=== PATIENT | female | born 1955 | race Caucasian/White ===

== ENCOUNTER 2022-06-10 07:35 | Day surgery (SDC) | payer MEDICARE ==
[2022-06-10] MEDS ORDERED: Depo-Medrol 40 MG/ML IM ONE (07:36)
[2022-06-10] MEDS ORDERED: Sodium Chloride 0.9(Preservative Free) 10 ML IJ ONE (07:36)
[2022-06-10] MEDS ORDERED: DIPRIVAN 200 MG/20 ML IV ONE (08:55)
--- NOTE | 2022-06-10 09:53 | XRAY ---
Indication: Right L3-L5 transforaminal CONNIE. Intraoperative fluoroscopy provided for 25 seconds. 6 digital spot image submitted for interpretation demonstrates posterior needle tips projecting over the expected right L3 and L4 nerve roots. Small amount of contrast injected for needle tip placement. Correlate with intraoperative findings/report.
[2022-06-10] MEDS ORDERED: Lactated Ringers 1,000 ML IV ONE (10:22)
--- NOTE | 2022-06-10 10:49 | XRAY ---
60 seconds of fluoroscopy was used in surgery for a right L3-L5 transforaminal CONNIE.
== END 2022-06-10 09:25 | disposition home or self-care (01) ==
LOC: SDC-PAIN 07:35
PROVIDERS: ATTEND Psychiatry & Neurology Pain Medicine
DX: M54.16 Radiculopathy, lumbar region (principal); Z79.899 Other long term (current) drug therapy
CPT/HCPCS: 64483; 64484; 72100; 77003; J1030; J2704; Q9966